=== PATIENT | male | born 1985 | race Hispanic/Latino ===

== ENCOUNTER 2021-01-14 08:04 | Emergency (ER) | payer OTHER ==
--- NOTE | 2021-01-14 08:27 | EDPHYS ---
Physician Documentation [facility] Name: Jason Kowalski Age: 35 yrs Sex: Male : 1985 Arrival Date: 01/14/2021 Time: 08:11 Bed 5 Private MD: ED Physician Estela Christianson HPI: 01/14 08:24 This 35 yrs old Male presents to ER via Unassigned with complaints of tongue ma2 pain. 08:24 Onset: The symptoms/episode began/occurred gradually, 2 day(s) ago. Associated signs ma2 and symptoms: Pertinent negatives: inability to eat, pain, redness in area. Severity of symptoms: At their worst the symptoms were mild, in the emergency department the symptoms are unchanged. The patient has not experienced similar symptoms in the past. Historical: - Allergies: 09:12 No Known Allergies; bp - Home Meds: 09:12 Unable to obtain [Active]; bp - PMHx: 09:12 Unable to obtain; bp - Immunization history:: Adult Immunizations up to date. - Social history:: Patient/guardian denies using alcohol, IV drugs, The patient lives inmate. Smoking status: Patient denies any tobacco usage or history of. ROS: 08:24 Constitutional: Negative for fever, chills, and weight loss. ma2 08:24 All other systems are negative. Exam: 08:24 Constitutional: This is a well developed, well nourished patient who is awake, alert, ma2 and in no acute distress. Head/Face: Normocephalic, atraumatic. Eyes: Pupils equal round and reactive to light, extra-ocular motions intact. Lids and lashes normal. Conjunctiva and sclera are non-icteric and not injected. Cornea within normal limits. Periorbital areas with no swelling, redness, or edema. ENT: right lateral tongue lesion with cellulitis area, no tongue swelling, oropharynx is wnl, airway is intact, no stridor. right anterior cervical lymph node is tender, not palpable however. otherwise Nares patent. No nasal discharge, no septal abnormalities noted. Tympanic membranes are normal and external auditory canals are clear. Oropharynx with no redness, swelling, or masses, exudates, or evidence of obstruction, uvula midline. Mucous membranes moist. Neck: Trachea midline, no thyromegaly or masses palpated, and no cervical lymphadenopathy. Supple, full range of motion without nuchal rigidity, or vertebral point tenderness. No Meningismus. Chest/axilla: Normal chest wall appearance and motion. Nontender with no deformity. No lesions are appreciated. Cardiovascular: Regular rate and rhythm with a normal S1 and S2. No gallops, murmurs, or rubs. Normal PMI, no JVD. No pulse deficits. Respiratory: Lungs have equal breath sounds bilaterally, clear to auscultation and percussion. No rales, rhonchi or wheezes noted. No increased work of breathing, no retractions or nasal flaring. Abdomen/GI: Soft, non-tender, with normal bowel sounds. No distension or tympany. No guarding or rebound. No evidence of tenderness throughout. Vital Signs: 08:15 BP 132 / 79; Pulse 85; Resp 17; Temp 98; Pulse Ox 99% ; bp MDM: 08:18 Patient medically screened. ma2 08:24 Differential diagnosis: gingivitis, pericoronitis, aphthous ulcers, gingivostomatitis. ma2 Data reviewed: vital signs, nurses notes. Counseling: I had a detailed discussion with the patient and/or guardian regarding: the historical points, exam findings, and any diagnostic results supporting the discharge/admit diagnosis, the presence of at least one elevated blood pressure reading (>120/80) during this emergency department visit, the need for outpatient follow up. Response to treatment: the patient's symptoms have markedly improved after treatment. Administered Medications: No medications were administered Disposition: 01/14/21 08:26 Discharged to Home. Impression: Diseases of tongue. - Condition is Stable. - Prescriptions for Augmentin 875- 125 mg Oral Tablet - take 1 tablet by ORAL route every 12 hours for 10 days; 20 tablet. Diclofenac Sodium 75 mg Oral Tablet Sustained Release - take 1 tablet by ORAL route 2 times per day; 30 tablet. - Medication Reconciliation Form, Thank You Letter, Antibiotic Education, Prescription Opioid Use form. - Follow up: Private Physician; When: Tomorrow; Reason: Recheck today's complaints, Continuance of care. Signatures: Vickey Antonio RN RN bp Alzahri, Mohammad, MD MD ma2 Corrections: (The following items were deleted from the chart) 09:15 08:26 01/14/2021 08:26 Discharged to Home. Impression: Diseases of tongue. Condition is bp Stable. Prescriptions for Augmentin 875-125 mg Oral Tablet - take 1 tablet by ORAL route every 12 hours for 10 days; 20 tablet, Diclofenac Sodium 75 mg Oral Tablet Sustained Release - take 1 tablet by ORAL route 2 times per day; 30 tablet. and Forms are Medication Reconciliation Form, Thank You Letter, Antibiotic Education, Prescription Opioid Use. Follow up: Private Physician; When: Tomorrow; Reason: Recheck today's complaints, Continuance of care. ma2
--- NOTE | 2021-01-14 09:16 | ER ---
Nurse's Notes [facility] Name: Jason Kowalski Age: 35 yrs Sex: Male : 1985 Arrival Date: 01/14/2021 Time: 08:11 Bed 5 Private MD: Diagnosis: Diseases of tongue Presentation: 01/14 08:15 Chief complaint: Patient states: LESION TO SIDE OF TONGUE x2 DAYS. Coronavirus screen: bp At this time, the client does not indicate any symptoms associated with coronavirus-19. Ebola Screen: No symptoms or risks identified at this time. Initial Sepsis Screen: Does the patient meet any 2 criteria? No. Patient's initial sepsis screen is negative. Does the patient have a suspected source of infection? No. Patient's initial sepsis screen is negative. Risk Assessment: Do you want to hurt yourself or someone else? Patient reports no desire to harm self or others. Onset of symptoms is unknown. 08:15 Method Of Arrival: Law Enforcement: [place] [employer] bp 08:15 Acuity: SEKOU 4 bp Triage Assessment: 08:15 General: Appears in no apparent distress. uncomfortable, Behavior is cooperative, bp appropriate for age, anxious. Pain: Complains of pain in mouth. EENT: Reports TONGUE LESION. Neuro: No deficits noted. Cardiovascular: No deficits noted. Respiratory: Airway is patent Respiratory effort is even, unlabored, Respiratory pattern is regular, symmetrical. GI: No signs and/or symptoms were reported involving the gastrointestinal system. : No signs and/or symptoms were reported regarding the genitourinary system. Derm: No deficits noted. Musculoskeletal: No deficits noted. Historical: - Allergies: 09:12 No Known Allergies; bp - Home Meds: 09:12 Unable to obtain [Active]; bp - PMHx: 09:12 Unable to obtain; bp - Immunization history:: Adult Immunizations up to date. - Social history:: Patient/guardian denies using alcohol, IV drugs, The patient lives inmate. Smoking status: Patient denies any tobacco usage or history of. Screenin:14 Abuse screen: Denies threats or abuse. Denies injuries from another. Nutritional bp screening: No deficits noted. Tuberculosis screening: No symptoms or risk factors identified. Fall Risk None identified. Assessment: 08:15 General: SEE TRIAGE NOTE. bp 09:14 Reassessment: PT D/C HOME WITH [employer], DX WITH TONGUE LESION. bp Vital Signs: 08:15 BP 132 / 79; Pulse 85; Resp 17; Temp 98; Pulse Ox 99% ; bp ED Course: 08:11 Patient arrived in ED. jd3 08:15 Arm band placed on. bp 08:18 Estela Christianson MD is Attending Physician. ma2 09:06 Vickey Antonio, RN is Primary Nurse. bp 09:08 Triage completed. bp 09:14 Patient has correct armband on for positive identification. Bed in low position. Call bp light in reach. Side rails up X2. Adult w/ patient. 09:14 No provider procedures requiring assistance completed. Patient did not have IV access bp during this emergency room visit. Administered Medications: No medications were administered Outcome: 08:26 Discharge ordered by . ma2 09:14 Discharged to Law Enforcement bp 09:14 Condition: stable 09:14 Discharge instructions given to patient, police, Instructed on discharge instructions, follow up and referral plans. medication usage, Demonstrated understanding of instructions, follow-up care, medications, Prescriptions given X 2. 09:15 Patient left the ED. bp Signatures: Gordon Harris RN RN jVikcey Carrillo, RAMIREZ RN bp Estela Christianson MD MD [facility] Corrections: (The following items were deleted from the chart) 09:14 09:12 General: Appears in no apparent distress. uncomfortable, Behavior is cooperative, bp appropriate for age, anxious, bp 09:14 09:12 Pain: Complains of pain in mouth bp bp 09:14 09:12 EENT: Reports TONGUE LESION. bp bp 09:14 09:12 Neuro: No deficits noted. bp bp 09:14 09:12 Cardiovascular: No deficits noted. bp bp 09:14 09:12 Respiratory: Airway is patent Respiratory effort is even, unlabored, Respiratory bp pattern is regular, symmetrical, bp 09:14 09:12 GI: No signs and/or symptoms were reported involving the gastrointestinal system. bp bp 09:14 09:12 : No signs and/or symptoms were reported regarding the genitourinary system. bp bp 09:14 09:12 Derm: No deficits noted. bp bp 09:14 09:12 Musculoskeletal: No deficits noted. bp bp
[2021-01-14 09:21] VITALS: BP 132/79; TEMP 98; O2SAT 99
== END 2021-01-14 09:15 | disposition home or self-care (01) ==
LOC: ER 08:04
DX: K14.9 Disease of tongue, unspecified (principal)
CPT/HCPCS: 99282